=== PATIENT | female | born 1965 | race Caucasian/White ===

== ENCOUNTER 2016-12-10 06:08 | Emergency (ER) | payer OTHER ==
--- NOTE | ~2016-12-10 | EKG ---
PATIENT: NAV CHAVEZ UNIT #: [id number] Ventricular Rate: 76 BPM Atrial Rate: 76 BPM P-R Interval: 120 ms QRS Duration: 72 ms Q-T Interval: 398 ms QTC Calculation(Bezet): 447 ms P [place]: 18 degrees Calculated R [place]: 27 degrees Calculated T [place]: 14 degrees Diagnosis Line: Normal sinus rhythm Diagnosis Line: Normal ECG Diagnosis Line: When compared with ECG of 04-MAR-2009 12:16, Diagnosis Line: No significant change was found Diagnosis Line: Confirmed by CHRISTY DONG MD ([id number]) on 12/11/2016 Diagnosis Line: 8:31:39 AM INTERPRETING MD: LETITIA THOMPSON
--- NOTE | ~2016-12-10 | CT3 ---
[facility] A Service of [facility] RADIOLOGY TEXT RESULTS PATIENT: NAV CHAVEZ LOCATION: [facility] : 61 UNIT #: [id number] AGE: [address]: Justa Ruvalcaba APRN SEX: F ORDER DR: [id number] [facility] [address] [place], [place] [address] [id number] MR#: [id number] Acc #: [id number] NAME: NAV CHAVEZ. : 1965 SEX: F STUDY DATE/TIME: 12/10/2016 9:38 UNIT: [facility] ROOM: STUDY DESCRIPTION: CT Abd and Pelv WWo Cont Attending Physician: Justa Ruvalcaba A.P.R.N. Ordering Physician: Justa Ruvalcaba A.P.R.N. Primary Care Physician: Alexis Holder M.D. MEDICAL IMAGING REPORT This report is preliminary unless electronic signature is present EXAM Abdomen and pelvis CT without contrast and with contrast, 12/10/2016. INDICATION 51-year-old female with right-sided flank pain 3 days. Hematuria. Clinical concern for appendicitis or a renal stone. TECHNIQUE Noncontrast abdomen and pelvis CT was performed. Thereafter contrast-enhanced imaging was performed of the abdomen and pelvis with attention to the kidneys. This CT exam was performed with one or more of the following radiation dose reduction techniques: automatic exposure control, adjustment of mA and/or kV according to patient size, and iterative reconstruction. COMPARISON 08/19/2007 FINDINGS NONCONTRAST ABDOMEN: Included lung bases demonstrate atelectasis to a mild degree. No effusion. Aorta demonstrates atherosclerotic change. There is no aneurysm. There is a tiny 1-2 mm obstructing stone at the right UPJ level with mild right-sided hydronephrosis. Trace amount of excreted contrast in both kidneys, probably relates to a timing bolus injection. No other radiopaque stone identified. Ureters otherwise unremarkable. Reactive-appearing retroperitoneal nodes. NONCONTRAST CT PELVIS: Bladder unremarkable. There is a curvilinear teardrop shaped mass intimately associated with the uterus. Dimensions are approximately 7.9 x 2.6 x 3.0 cm. There are thickened septations within the mass. Adjacent to the mass are metallic clips suggestive of prior surgery. There are vascular calcifications in the pelvis. The [facility] A Service of [facility] RADIOLOGY TEXT RESULTS PATIENT: NAV CHAVEZ LOCATION: [facility] : 61 UNIT #: [id number] AGE: [address]: Justa Ruvalcaba AUTOMATION ARCHITECT SEX: F ORDER DR: appendix is normal. CONTRAST-ENHANCED ABDOMEN: There is no aortic dissection. Spleen, adrenal glands, and pancreas are unremarkable. Gallbladder unremarkable. There is mild fatty infiltration of the liver. Kidneys otherwise unremarkable with the exception of the mild hydronephrosis and edematous change of the right kidney related to the obstructing ureteral stone. CT PELVIS: The bladder is unremarkable. No drainable fluid collection in the pelvis. The fat-containing mass in the pelvis is intimately associated with the left lateral margin of the uterus. There is no distinct calcification within the mass. The mass was present on a prior 2008 CT, but is clearly larger than on the prior study when it measured 3 cm. Stranding and septations within the mass are also more conspicuous and thicker. This does not appear to arise from the left ovary to reflect a teratoma. 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 The presence of the clips adjacent to the mass may reflect prior tissue sampling or partial resection and correlation with patient history and pathology results is recommended. Based upon imaging features and interval increase in size, surgical referral is recommended along with consideration of surgical removal. No associated adenopathy in the pelvis. Inguinal canals unremarkable. There is no suspicious bone lesion. 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 IMPRESSION 1. Abnormal examination. There is a tiny sand-like obstructing stone in the right UPJ level causing mild right-sided hydronephrosis and edematous change of the right kidney. No radiopaque stone otherwise identified on either side. 2. The appendix is normal. 3. There is a fat-containing mass intimately associated with the left lateral margin of the uterus. The mass measures 7.9 x 2.6 x 3 cm increased in size from a 2008 CT, when it measured up to about 3 cm. The mass contains thickened septations and there is internal haziness of the fat planes and the mass is clearly larger. 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 Surgical referral is recommended for consideration of surgical resection. This does not appear to represent an ovarian dermoid or teratoma. 4. There is mild fatty infiltration of the liver. 5. Probable reactive retroperitoneal nodes. 6. Bilateral pars defects at L5-S1. STAT * RESULT Dictated by... Dionisio Carlton M.D. [facility] A Service of [facility] RADIOLOGY TEXT RESULTS PATIENT: NAV CHAVEZ [id number] 61 UNIT #: [id number] AGE: [address]: Justa Ruvalcaba APRN SEX: F ORDER DR: THIS IS AN ELECTRONICALLY VERIFIED REPORT Dionisio Carlton M.D. at 12/10/2016 5:16 PM MOISES/jonah TD: 12/10/2016 11:51 JOB #: [id number] MEDICAL IMAGING REPORT Page 1 of 1 COPY
[~2016-12-10 06:08] MED LIST: ALL DAY ALLERGY10 M2 PO; AMLODIPINE BESYL5 MG PO; ASPIRIN PO; ASPIRIN81 MG PO; B-COMPLEX-VITA1 EACH PO; BENAZEPRIL HCL10 M1 PO; CELEXA PO; CIPRO PO; DARVOCET-N 1001 TAB PO; FLONASE 0.05% N16 G1; FLUOXETINE HCL20 M1 PO; GABAPENTIN PO; GLUCOPHAGE500 MG PO; LISINOPRIL10 MG PO; LOTREL 5/10 MG1 CAP PO; METFORMIN PO; PROTONIX PO; SIMVASTATIN40 MG PO; VITAMIN D50000 UNIT PO
[2016-12-10 08:14] LABS: POC - CKMB <1.0 ng/mL (0.0-7.9); POC - TROPONIN <0.05 ng/mL (<=0.05)
[2016-12-10 08:30] LABS: URINE SOURCE CLEAN CATCH
[2016-12-10 08:39] LABS: BASOPHIL# 0.1 X10e3 (0-0.3); BASOPHIL% 0.4 % (0-2.5); EOSINOPHIL# 0.3 X10e3 (0-0.7); HEMATOCRIT 39.5 % (35.0-45.0); HEMOGLOBIN 12.7 gm/dL (12.0-16.0); LYMPHOCYTE% 21.5 % (17.0-45.0); MEAN CELL VOLUME 82.2 FL (83-96); MEAN CORPUSCULAR HEMOGLOBIN 26.4 PG (28-34); MEAN CORPUSCULAR HGB CONC 32.1 g/dL (30-36); MEAN PLATELET VOLUME 6.6 FL (6.5-11.5); MONOCYTE# 0.8 X10e3 (0-1.0); MONOCYTE% 5.5 % (3.0-12.0); NEUTROPHIL# 9.9 X10e3 (1.5-7.1); NEUTROPHIL% 70.6 % (40-75); PLATELET COUNT 374 X10e3 (140-420)
[2016-12-10 08:40] LABS: DIFF IND NO
[2016-12-10 08:40] LABS: URINE APPEARANCE CLEAR; URINE BILIRUBIN NEG (NEG); URINE BLOOD 2+ (NEG); URINE COLOR YELLOW; URINE GLUCOSE NEG (NEG); URINE KETONE NEG (NEG); URINE LEUKOCYTE ESTERASE NEG (NEG); URINE NITRATE NEG (NEG); URINE PH 6.5 (5-8); URINE PROTEIN NEG (NEG); URINE SPECIFIC GRAVITY 1.018 (1.003-1.035); URINE UROBILINOGEN 0.2 MG/DL (NEG)
[2016-12-10 08:42] LABS: CULTURE INDICATED? YES; U HYALINE CASTS AUWI 0-2 /[LPF]; URBCS1 AUWI 100-200 /[HPF] (0-2); URINE BACTERIA AUWI 1+ (NEGATIVE); URINE SQUAMOUS EPITHELIAL CELL FEW /[HPF]
[2016-12-10 09:03] LABS: ALBUMIN SERUM 3.9 g/dL (3.5-5.0); ALKALINE PHOSPHATASE 49 U/L (32-92); ALT (SGPT) 24 U/L (10-40); AST (SGOT) 24 U/L (10-42); BILIRUBIN,TOTAL 0.2 mg/dL (0.2-2.0); BLOOD UREA NITROGEN 15 mg/dL (9-23); CALCIUM SERUM 9.1 mg/dL (8.4-10.2); CARBON DIOXIDE 27 mmol/L (22-31); CHLORIDE 102 mmol/L (100-111); CREATININE SERUM 0.4 mg/dL (0.6-1.4); GLOM FILT RATE Estimated 118.9 mL/min (>60); GLUCOSE FASTING 95 mg/dL (70-110); LIPASE 29 U/L (22-51); POTASSIUM 3.5 mmol/L (3.5-5.1); SODIUM 138 mmol/L (135-145)
[2016-12-10 09:04] LABS: BILIRUBIN, DIRECT <0.1 mg/dL (0.0-0.2); BILIRUBIN,INDIRECT 0.1 mg/dL (0.0-0.9)
[2016-12-10] MEDS ORDERED: NAPROXEN PO (12:06)
[2016-12-10] MEDS ORDERED: PATIENT'S PHARMACY (12:06)
[2016-12-10] MEDS ORDERED: LIORESAL10 MG PO (12:06)
[2016-12-10] MEDS ORDERED: CYANOCOBALAM1000 MCG PO (12:07)
[2016-12-10] MEDS ORDERED: METFORMIN PO (12:07)
[2016-12-10] MEDS ORDERED: ACETAMINOPHEN500 M3 PO (12:07)
[2016-12-10] MEDS ORDERED: LISINOPRIL PO (12:07)
[2016-12-10] MEDS ORDERED: NEURONTIN100 MG PO (12:07)
[2016-12-10] MEDS ORDERED: AMARYL2 MG PO (12:08)
[2016-12-10] MEDS ORDERED: VITAMIN D250000 UNIT PO (12:08)
[2016-12-10] MEDS ORDERED: FLUOXETINE HCL40 M1 PO (12:09)
[2016-12-10] MEDS ORDERED: ASPIRIN81 M2 PO (12:09)
[2016-12-10] MEDS ORDERED: ZOCOR PO (12:09)
[2016-12-10] MEDS ORDERED: NON-DROWSY ALLE10 MG PO (12:09)
[2016-12-10] MEDS ORDERED: NORVASC PO (12:09)
[2016-12-10] MEDS ORDERED: PROTONIX PO (12:09)
[2016-12-10] MEDS ORDERED: FLONASE ALLERG9.9 ML (12:10)
[2016-12-10] MEDS ORDERED: SINGULAIR PO (12:10)
== END 2016-12-10 17:22 | disposition short-term general hospital (02) ==
LOC: CED 06:08
PROVIDERS: Nurse Practitioner
DX: N13.2 Hydronephrosis with renal and ureteral calculous obstruction (principal); I10 Essential (primary) hypertension; E78.5 Hyperlipidemia, unspecified; E11.9 Type 2 diabetes mellitus without complications; Z88.2 Allergy status to sulfonamides; Z79.899 Other long term (current) drug therapy; Z79.82 Long term (current) use of aspirin; Z79.84 Long term (current) use of oral hypoglycemic drugs
CPT/HCPCS: 36415; 74178; 80048; 80076; 81003; 82553; 82947; 83690; 84484; 84703; 85025; 87086; 93005; 96361; 96374; 96375; 96376; 99285; J1170; J2270; J2405; J2550; Q9967